=== PATIENT | male | born 1960 | race Caucasian/White ===

== ENCOUNTER 2024-06-13 10:57 | Emergency (ER) | payer OTHER, SELFPAY ==
[2024-06-13 11:18] VITALS: BP 129/86; PULSE 86; RESP 16; TEMP 37.3; O2SAT 96; BMI 30.3
--- NOTE | 2024-06-13 11:22 | CRLHL7_ITS ---
For Patients: As a result of the Century Cures Act, medical imaging exams and procedure reports are released immediately into your electronic medical record. You may view this report before your referring provider. If you have questions, please contact your health care provider. Indication: Trauma. Technique: Right foot, 3 views. Comparison: None. Findings/Impression: Bones: Alignment is normal. No displaced fractures or bone lesions. Joint spaces: Unremarkable. Soft tissues: Unremarkable. Dictated by Arsenio Wells MD @ 06/13/2024 12:31:03 PM (Electronically Signed)
--- NOTE | 2024-06-13 11:23 | CRLHL7_ITS ---
For Patients: As a result of the Century Cures Act, medical imaging exams and procedure reports are released immediately into your electronic medical record. You may view this report before your referring provider. If you have questions, please contact your health care provider. Indication: Trauma. Technique: Right ankle, 3 views. Comparison: None. Findings/Impression: Bones: Alignment is normal. Subtle lucency along the lateral malleolus concerning for nondisplaced fracture. Recommend correlation with point tenderness. Otherwise, no displaced fractures or bone lesions. Joint spaces: Small joint effusion. Soft tissues: Soft tissue swelling around the lateral malleolus. Dictated by Arsenio Wells MD @ 06/13/2024 12:26:08 PM (Electronically Signed)
--- NOTE | 2024-06-13 12:43 | ED.LOWEXIN ---
HPI - Extremity Injury (Lower) General Time Seen by Provider: 12:43 Date Seen: 06/13/24 Chief Complaint: Extremity Pain/Injury, Lower Stated Complaint: Foot injury crushed by 400# Time Seen by Provider: 06/13/24 12:42 Source: patient, RN notes reviewed and old records reviewed Mode of arrival: ambulatory Limitations: no limitations History of Present Illness HPI Narrative: 63-year-old male who comes in today with foot injury. Patient reports a still being a fell on his foot yesterday, complains of pain and a little bit of numbness today. He took some ibuprofen for this earlier. Patient is able to ambulate. Related Data Home Medications ?Medication ?Instructions ?Recorded ?Confirmed aspirin 81 mg tablet,delayed 81 mg PO DAILY 06/13/24 06/13/24 release (Adult Low Dose Aspirin) atorvastatin 40 mg tablet (Lipitor) 40 mg PO QHS 06/13/24 06/13/24 levothyroxine 50 mcg tablet 50 mcg PO DAILY 06/13/24 06/13/24 (Synthroid) propranolol 20 mg tablet 20 mg PO TID 06/13/24 06/13/24 Allergies Allergy/AdvReac Type Severity Reaction Status Date / Time No Known Drug Allergies Allergy Verified 06/13/24 11:22 Exam Narrative: Exam Narrative: General: well nourished , NAD Head: Atraumatic and normocephalic ENT: External ears and external nose are normal Eyes: Conjunctiva clear, pupils are equal reactive, external ocular motions are intact Neck: Full spontaneous range of motion of the neck Lungs: No respiratory distress Musculoskeletal: Tenderness, bruising and swelling along with some abrasions of the medial right lower leg and ankle. Negative squeeze test. He anterior posterior compartments are soft Neurologic: No gross focal neurologic deficits Skin: Abrasions of the anterior medial lower leg Psych: Mood and affect are appropriate Const: Vital Signs, click to edit/add: Vital Signs - 24 hr 06/13/24 11:18 Temperature 99.1 F Pulse Rate [Left P ulse Oximeter] 86 Respiratory Rate 16 Blood Pressure [Le ft Upper Arm] 129/86 Pulse Oximetry 96 Oxygen Delivery Me thod Room Air Course Course ED Course: Patient seen examined, presents today with right lower leg and foot injury. This happened yesterday. He has some abrasions of the anterior medial lower leg and some bruising just proximal to the medial malleolus as well as distal to the medial malleolus. X-ray of the foot independently interpreted by me negative for acute findings. Reviewed radiology interpretation of the x-ray of the right ankle which has interestingly some swelling around the lateral malleolus and supple lucency along the lateral malleolus concerning for nondisplaced fracture, however patient has no pain in this area and no injury to this area. No acute bony abnormalities. Patient is stable for discharge with symptom management including elevation, ice, Tylenol ibuprofen. Vital Signs Vital signs: Initial Vital Signs Temperature 99.1 F 06/13/24 11:18 Temperature Source Temporal Artery Scan 06/13/24 11:18 Pulse Rate 86 06/13/24 11:18 Pulse Rhythm Regular 06/13/24 11:18 Pulse Strength 3+ Normal 06/13/24 11:18 Respiratory Rate 16 06/13/24 11:18 Blood Pressure 129/86 06/13/24 11:18 Blood Pressure Mean 100 06/13/24 11:18 Blood Pressure Position Sitting 06/13/24 11:18 Pulse Oximetry 96 06/13/24 11:18 Oxygen Delivery Method Room Air 06/13/24 11:18 Vital Signs Temperature 99.1 F 06/13/24 11:18 Pulse Rate 86 06/13/24 11:18 Respiratory Rate 16 06/13/24 11:18 Blood Pressure 129/86 06/13/24 11:18 Pulse Oximetry 96 06/13/24 11:18 Oxygen Delivery Method Room Air 06/13/24 11:18 Temperature 99.1 F 06/13/24 11:18 Pulse Rate 86 06/13/24 11:18 Respiratory Rate 16 06/13/24 11:18 Blood Pressure 129/86 06/13/24 11:18 Pulse Oximetry 96 06/13/24 11:18 Oxygen Delivery Method Room Air 06/13/24 11:18 Discharge Plan Discharge Clinical Impression: Abrasion of right lower leg, Contusion of right ankle, Crush injury of right foot Patient Disposition: Home, Self-Care Condition: Stable Instructions: Contusion in Adults (ED), Abrasion (ED), Crush Injury (ED) Additional Instructions: Take Tylenol and ibuprofen as needed for pain. Wash the abrasions gently with soap and water once a day. Elevate and ice as able. Activity Level: Activity as Tolerated Discharge Diet: Regular Prescriptions: No Action propranolol 20 mg tablet 20 mg PO TID levothyroxine [Synthroid] 50 mcg tablet 50 mcg PO DAILY atorvastatin [Lipitor] 40 mg tablet 40 mg PO QHS aspirin [Adult Low Dose Aspirin] 81 mg tablet,delayed release (DR/EC) 81 mg PO DAILY Stand Alone Forms: [employer] Info Instructions
== END 2024-06-13 13:19 | disposition home or self-care (01) ==
LOC: ED 13:02
PROVIDERS: Emergency Provider Family Medicine
DX: S80.811A Abrasion, right lower leg, initial encounter (principal); S90.01XA Contusion of right ankle, initial encounter; W19.XXXA Unspecified fall, initial encounter
CPT/HCPCS: 73610; 73630; 99283; 99284